=== PATIENT | male | born 1950 | race Caucasian/White ===

== ENCOUNTER 2016-02-18 05:33 | Emergency (ER) | payer MEDICARE, SELFPAY ==
[2016-02-18 05:33] VITALS: BMI 27.3
--- NOTE | 2016-02-18 05:52 | EDPRACDOC ---
- General Information Stated Complaint: WEAKNESS Time Seen by Provider: 02/18/16 05:37 Information Source: Patient, Family Mode of Arrival: Car Home Medications: Home Medications Oxycodone Immediate Release [Oxycodone Immediate Release (OxyIR)] 5 mg PO Q6H PRN 06/10/13 Clonazepam [Klonopin] 2 mg PO TID 07/25/13 Nebulizer [Erapid Nebulizer] 1 each MC UNK 03/17/14 Albuterol Sulfate [Ventolin] 2.5 mg NEB Q6H PRN #120 nebu 11/23/14 Ledipasvir/Sofosbuvir [Harvoni 90-400 mg Tablet] 1 tab PO DAILY 12/13/14 Ribavirin 600 mg PO BID 12/13/14 Albuterol Sulfate [Proair Hfa] 2 puff INH Q4H PRN #1 12/17/14 Aspirin (Enteric Coated) [Halfprin] 81 mg PO DAILY #90 tab 12/17/14 Azithromycin [Zithromax Tri-Amadou] 500 mg PO DAILY #3 tablet 12/17/14 Cefdinir [Omnicef] 300 mg PO BID #10 cap 12/17/14 CloNIDine (Antihypertensive) [Catapres] 0.1 mg PO BID #60 tablet 12/17/14 Diltiazem HCl [Cardizem Cd] 120 mg PO DAILY #120 cap 12/17/14 Fluticasone/Salmeterol [Advair 250-50 Diskus] 1 puff INH BID #1 12/17/14 Prednisone [Sterapred DS 10 mg/12 day pack] 48 tab PO DIR #1 pack 12/17/14 Dicyclomine HCl [Bentyl] 20 mg PO Q8H PRN #20 tab 03/20/15 Promethazine [Phenergan] 25 mg PO Q4-6H PRN #15 tab 03/20/15 Ondansetron [Zofran Odt] 4 mg PO Q6H PRN #15 tab.rapdis 07/19/15 Allergies/Adverse Reactions: Allergies Allergy/AdvReac Type Severity Reaction Status Date / Time acetaminophen [From Tylenol] Allergy See Verified 07/19/15 19:20 Comments aspirin Allergy See Verified 07/19/15 19:20 Comments ibuprofen Allergy See Verified 07/19/15 19:20 Comments iron AdvReac Mild Nausea/Vomi Verified 07/19/15 19:20 ting Penicillins AdvReac Mild Nausea/Vomi Verified 07/19/15 19:20 ting - History of Present Illness Onset: SEVERAL DAYS HPI: FEVER UP TO 102, GEN WEAKNESS,MILD COUGH, NO DYSURIA. NO ABD PAIN. ARTHRALGIA OF MULTIPLE JOINTS AND SWELLING KIMMY HANDS. NO ALLEV OR AGG FACTORS. Relevant History: Reports: Chronic Illness ED Past Medical History - History Reviewed Yes Nurses notes reviewed and agree except as marked - Patient Medical History Cardiac History: Reports: Atrial Fibrillation, Hypertension, Valvular Heart Disease Respiratory History: Reports: Asthma, COPD, Pneumonia, Emphysema GI/ History: Reports: Gastroesophageal Reflux (Hiatal hernia), PMH GI Yes/No Other (ESOPHAGEAL PERF S/P OPERATIVE REPAIR). Denies: Liver Failure (HEP C AND CIRRHOSIS) Musculoskeletal History: Reports: Arthritis, Osteoarthritis Psychological History: Reports: Depression, Anxiety. Denies: Substance Use Disorder (Except for tattoo ink with dirty needle) Systemic History: Reports: Anemia. Denies: Cancer Additional Past Medical History: HEP C Surgical History: Reports: Hernia Surgery, Other (ESOPHAGEAL RUPTURE REPAIR, FOOT SURGERY) - Family Medical History Reports: Diabetes (brother, daughter), Cancer (aunts - breast). Denies: Hypertension, Stroke, Cardiac Disorders - Social Medical History Smoking Status: Former smoker Social History: Denies: Substance Use Disorder (Except for tattoo ink with dirty needle) ETOH: None Substance Abuse: None Lives With: Family Lives In: Home EDM Review of Systems - Review of Systems ROS Negative Except as Marked: Yes All systems reviewed and were negative except as marked ROS Unobtainable: Yes ROS cannot be obtained due to patient's medical condition - Physical Exam Constitutional: Alert, Cachectic, Confused, Other (YELLOW AROUND KIMMY HANDS AND MOUTH / THOMAS. REPORTS THIS WAS B/C DAUGHTER RUBBED A YELLOW ANOINTMENT ON HANDS, WOULD NOT COME OFF.). negative: Well nourished, Well appearing Last recorded Vital Signs: Oxygen Pulse Oxygen Saturation O2 Device Oxygen Flow Rate Fraction of Inspired Oxygen ( FIO2) - HEENT Head: Normal Eye Exam: Normal. negative: Pale Conjunctiva, Scleral Icterus Oropharynx: Membranes Dry Neck: Normal. negative: Limited ROM, Lymphadenopathy, Meningeal Signs - Respiratory/Cardiovascular Respiratory: Diminished, Rhonchi. negative: Accessory Muscle Use, Tachypnea Cardiovascular: Normal - GI Auscultation: Normal Palpation: Normal Tenderness: Non tender Khoury's Sign: Negative - Musculoskeletal Back: Normal Extremities: Normal. 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 - Differential Diagnosis Bronchitis, Dehydration, Influenza, Pneumonia, Sepsis, UTI, Viral Syndrome - Re-evaluation Re-evaluation 2 Re-evaluation Time: 06:50 (DOING WELL, "WORKING ON SOME URINE. NL MS, NO RESP DISTRESS) CARE ENDORSED TO DR CURRY WITH LABS AND UA PENDING. - Results 02/18/16 05:50 02/18/16 05:50 - EKG EKG #1 EKG Time: 05:48 -: Yes EKG interpreted by me Rate: bpm: 83 Salters: LAD Rhythm: NSR Block: None Hypertrophy: None ST: Nonsp
[2016-02-18 05:54] VITALS: TEMP 99
[2016-02-18 06:06] LABS: AUTOMATED BASOPHIL 2.5 % (0-2); AUTOMATED EOSINOPHIL 0.3 % (0-5); AUTOMATED LYMPH 12.1 % (17-44); AUTOMATED MONOCYTE 9.9 % (3-10); AUTOMATED NEUTROPHIL 75.2 % (45-76); MPV 9.1 fL (7.4-10.4)
[2016-02-18 06:25] LABS: PARTIAL THROMB. TIME 24.2 SEC (22-35); PT-INR 1.1
[2016-02-18 06:36] LABS: BLOOD UREA NITROGEN 14 MG/DL (9-20); CALC CORRECTED 9.4 MG/DL (8.4-10.2); CALCIUM 9.1 MG/DL (8.4-10.2); CALCULATED OSMOLALITY 271 MOs/Kg (270-290); CHLORIDE 97 mEq/L (98-107); CPK TOTAL WITH POSSIBLE MB 320 IU/L (55-170); GLUCOSE 131 MG/DL (70-99); SODIUM LEVEL 139 mEq/L (137-146); TOTAL PROTEIN 6.6 G/DL (6.3-8.2)
[2016-02-18] MEDS ORDERED: NS 1,000 ML IV ONE (06:50)
[2016-02-18 06:51] LABS: CPKMB 0.7 ng/mL (0-4.5)
--- NOTE | 2016-02-18 07:24 | DIRPT ---
CLINICAL DATA: Sepsis and weakness. Fever for 1 day. EXAM: PORTABLE CHEST 1 VIEW COMPARISON: 12/16/2014 FINDINGS: The cardiac silhouette, mediastinal and hilar contours are within normal limits and stable. There is tortuosity and calcification of the thoracic aorta. There are chronic scarring changes and both lungs, right greater than left and underlying emphysematous changes. Low lung volumes with streaky basilar atelectasis. No infiltrates or effusions. The bony thorax is intact. IMPRESSION: Chronic emphysematous and pulmonary scarring changes. Low lung volumes with vascular crowding and streaky bibasilar atelectasis. No infiltrates or effusions. Electronically Signed By: Yuniel Bobby M.D. On: 02/18/2016 07:21
[2016-02-18 07:54] LABS: LEUKOCYTES/URINE NEG (NEGATIVE); NITRITE/URINE NEG (NEGATIVE); URINE OCCULT BLOOD 1+ (NEG/TRACE); WBC/URINE 0-2 (0-2)
[2016-02-18 08:06] VITALS: BP 123/71; PULSE 84
== END 2016-02-18 08:06 | disposition home or self-care (01) ==
LOC: ED 05:33
DX: B34.9 Viral infection, unspecified (principal); I48.91 Unspecified atrial fibrillation; I10 Essential (primary) hypertension; J44.9 Chronic obstructive pulmonary disease, unspecified; J45.909 Unspecified asthma, uncomplicated; K21.9 Gastro-esophageal reflux disease without esophagitis; Z79.899 Other long term (current) drug therapy
CPT/HCPCS: 36415; 71010; 80053; 81001; 82140; 82550; 82553; 83605; 84484; 85025; 85610; 85730; 87040; 87086; 87804; 93005; 96360; 99283